=== PATIENT | female | born 1995 | race Two or more races ===

== ENCOUNTER 2024-10-02 10:33 | Emergency (ER) | payer MEDICAID, SELFPAY ==
[2024-10-02 10:53] VITALS: BP 127/81; PULSE 68; RESP 18; TEMP 36.7; O2SAT 96; BMI 36.1
--- NOTE | 2024-10-02 10:56 | XR_ITS ---
Examination: CT brain head without contrast. 2-D sagittal coronal reconstructions Date and time of exam:October 02, 2024 1147 hours INDICATIONS: Onset dizziness beginning this morning CTDI: vol (mGy):48.8 DLP: (mGycm):883 Technique: Multiple CT axial sections of the brain have been obtained, 5 mm slice thickness. Contrast has not been administered. 2-D sagittal, coronal reconstructions have been obtained Low dose protocols were performed. One or more of the following dose reduction techniques were used; automated exposure control, adjustment of the mA and/or KV according to patient size, use of iterative reconstruction technique. Findings: No significant ventricular enlargement. Intra-axial or extra-axial hemorrhage density is not seen. No mass effect or midline shift Basal cisterns are not remarkable. Fourth ventricle is midline. Cranial vault intact. Impression: Negative for acute hemorrhage, mass effect or midline shift Advise clinical correlation follow-up accordingly
--- NOTE | 2024-10-02 10:57 | EKG_ITS ---
[facility] Test Date: 2024-10-02 Pat Name: ALTAGRACIA CRAWFORD Department: Room: - Gender: Female Operator Specialist Communications: : 1995 Requested By: Biju Leyva (ROQUE) Order Number: [id number] Reading MD: Biju Leyva (EXTRACTIVE METALLURGIST) Measurements Intervals [place] Rate: 67 P: 43 SD: 159 QRS: 30 QRSD: 90 T: 40 QT: 362 QTc: 382 Interpretive Statements SINUS RHYTHM No previous ECG available for comparison /store/S0/[id number]/ecg/[id number].pdf
--- NOTE | 2024-10-02 10:57 | XR_ITS ---
Examination: PA lateral chest 2 views TECHNIQUE: Upright PA lateral chest 2 views Exam date and time: October 02, 1999 2524 hours INDICATIONS: Dizziness nausea vomiting beginning this morning FINDINGS: Normal heart size. No aspiration pneumonia Osseous structures are intact IMPRESSION: No aspiration pneumonia
--- NOTE | 2024-10-02 10:57 | PD.EDRME ---
Rapid Medical Screening Exam RME Arrival date/time: 10/02/24 10:33 29-year-old female presents emergency department complains of dizziness Chief Complaint: Dizziness Vital signs: Vital Signs Temperature 98.0 F 10/02/24 10:53 Pulse Rate 68 10/02/24 10:53 Respiratory Rate 18 10/02/24 10:53 Blood Pressure 127/81 10/02/24 10:53 Pulse Oximetry (%) 96 10/02/24 10:53 Oxygen Delivery Method Room Air 10/02/24 10:53
[2024-10-02] MEDS: MECLIZINE HCL 25 MG TABLET 50 MG PO (11:15)
[2024-10-02 11:51] LABS: Basophils % (Auto) 1 % (0-2.5); Eosinophils # (Auto) 0.1 Thou/mm3 (0.0-0.5); Eosinophils % (Auto) 2 % (0-10); Hemoglobin 13.5 g/dL (12.0-16.0); Immature Granulocytes % (Auto) 0 % (0-0); Immature Granulocytes Auto 0.02 Thou/mm3 (0.00-0.00); Lymphocytes # (Auto) 1.9 Thou/mm3 (1.0-4.8); Lymphocytes % (Auto) 29 % (10-50); Mean Corpuscular HGB Conc 32.9 g/dl (31.0-37.0); Mean Corpuscular Hemoglobin 28.3 pg (25.0-35.0); Mean Corpuscular Volume 86 fL (80-100); Monocytes # (Auto) 0.3 Thou/mm3 (0.0-0.8); Monocytes % (Auto) 5 % (0-12); Neutrophils % (Auto) 63 % (37-80); Nucleated Red Blood Cell % 0 /100 WBC (0); Platelet Count 240 Thou/mm3 (140-440); RDW Standard Deviation 41.5 fL (36.4-46.3); Red Blood Count 4.77 Miln/mm3 (4.00-5.20); White Blood Count 6.4 Thou/mm3 (3.6-11.0)
[2024-10-02 11:53] LABS: HCG,Qualitative Serum Negative
[2024-10-02 12:06] LABS: Alanine Aminotransferase 29 U/L (10-49); Albumin, Serum 4.5 gm/dL (3.5-5.0); Albumin/Globulin Ratio 1.6 (1.2-2.2); Alkaline Phosphatase 106 U/L (46-116); Anion Gap 10 (7-16); Aspartate Amino Transferase 19 U/L (0-34); BUN/Creatinine Ratio 14 Ratio (12-20); Bilirubin,Total 0.5 mg/dL (0.3-1.2); Blood Urea Nitrogen 7 mg/dL (9-23); Calcium 9.3 mg/dL (8.3-10.6); Calcium (Corrected) 9.3 mg/dL (8.5-10.1); Carbon Dioxide 23.5 mMol/L (20.0-31.0); Chloride 105 mMol/L (98-107); Creatinine (Component) 0.5 mg/dL (0.6-1.3); Estimated Creatinine Clearance 158.1 mL/min (>60); Free T4 (Free Thyroxine) 1.21 ng/dL (0.89-1.76); Globulin 2.9 gm/dL (2.3-3.5); Glucose 109 mg/dL (74-106); Osmolality,Calculated 274 (275-295); Potassium 3.8 mMol/L (3.4-5.1); Sodium 138 mMol/L (136-145); Thyroid Stimulating Hormone 0.63 uIU/mL (0.55-4.78); Total Protein 7.4 gm/dL (5.7-8.2); Troponin I < 0.002 ng/mL (0.0-0.045); eGFR > 60 See Note
[2024-10-02 14:20] VITALS: BP 129/82; PULSE 67; RESP 17; TEMP 37.1; O2SAT 99
--- NOTE | 2024-10-02 14:35 | EDNOTE_ITS ---
ED General RME/HPI General Chief complaint: Dizziness Stated complaint: Dizzy since 0100, Vomit X 1, nausea Time Seen by Provider: 10/02/24 14:29 Arrival date/time: 10/02/24 10:33 CC: Dizziness, HPI onset abruptly at 1 AM woke patient up. The patient said the room spinning she is not spinning no prior history of similar events, denies falling nausea or vomiting. Patient states there is been significant improvement since she was given medicine while in the waiting room. Patient was assessed at 1435. Patient denies any other symptoms. RME / HPI RME / HPI narrative: 10/02/24 10:33 29-year-old female presents emergency department complains of dizziness Related Data Home Medications ?Medication ?Instructions ?Recorded ?Confirmed prenat.vits,carol,[id number] 1 tab PO QDAY 11/02/20 06/22/24 Previous Rx's ?Medication ?Instructions ?Recorded meclizine 50 mg tablet 50 mg PO BID #14 tabs Allergies Allergy/AdvReac Type Severity Reaction Status Date / Time No Known Allergies Allergy Verified 10/02/24 10:37 Review of Systems Review of Systems Narrative Review of Systems: GEN: No fever, no chills, no weight loss EYES: No discharge, no visual changes, no pain HEENT: No ear pain, no congestion, no sore throat PULM: No shortness of breath, no cough, no congestion CV: No chest pain, no dyspnea on exertion, no palpitations GI: No nausea, no vomiting, no diarrhea, no pain, no constipation : No frequency, no urgency, no dysuria MUSC/SKEL: No joint pain, no back pain SKIN: No rash PSYCH: No hallucinations, no depression HEME/LYMPH: No easy bleeding or bruising tendencies NEURO: No weakness, no headache Past Medical History Past Medical History NEUROLOGIC: Negative Neurological Disorders CARDIAC: Negative Cardiac Disorders or Congestive Heart Failure RESPIRATORY: Negative Chronic Obstructive Pulmonary Disease (COPD) or Asthma GASTROINTESTINAL: Negative Gastrointestinal Disorders GENITOURINARY: Negative Genitourinary Disorders or Renal Disease REPRODUCTIVE: Positive Previous Pregnancies; Negative Pelvic Inflammatory Disease MUSCULOSKELETAL: Positive Musculoskeletal Disorders ENDOCRINE: Positive Endocrine Disorders; Negative Diabetes Mellitus Type 1 or Diabetes Mellitus Type 2 HEMATOLOGIC: Negative Blood Disorders OTHER HISTORY: Negative Hospitalization, Autoimmune Disease, Shingles, Falls, Blood Transfusions, Anesthesia Reactions, MRSA, Chicken Pox, Clostridium Difficile or Cancer Family History FAMILY HISTORY: Negative Family Psychiatric Problems, Family Respiratory Disorders, Family Cardiac Disorders, Family Gastrointestinal Problems, Family Cancer, Family Surgery or Family Anesthesia Reaction Surgical History SURGICAL: Negative Cardiac Surgery, Endocrine Surgery, Thyroidectomy, Ear Surgery, Abdominal Surgery, Nephrectomy, Joint Replacement, Neurologic Surgery or Section Social History SMOKING STATUS: Never smoker SECOND HAND EXPOSURE: No ED Exam Narrative Physical exam: [General: Obese not in cot no acute distress Head normocephalic HEENT: Eyes pupils are PERRLA EOMs are intact no vertical or horizontal nystagmus mouth pink moist membranes uvula midline swallow symmetrical, all other subsystems of HEENT are within acceptable limits Neck is supple nontender Chest equal chest rise nontender to palpation Respiratory: Clear to auscultation no wheezes crackles or rubs CV: Rate rhythm is regular no murmurs rubs or clicks Abdomen is distended secondary to body habitus soft nontender no masses positive bowel sounds all 4 quadrants Back: No CVA tenderness no spinous process tenderness from cervical spine thoracic and lumbar spine Skin: Intact no petechiae rash induration ulceration or crepitus Extremities: Moving all extremity against resistance cap refill less than 2 seconds neurosensory intact Neuro: Awake alert oriented x3 Glascow coma 15 no focal deficits] Course Quality Measures none Orders Category Date Time Status EKG (ED ONLY) *Do not use* NOW Care 10/02/24 10:[address] head/brain wo con Stat Exams 10/02/24 10:56 Completed EKG (ED Only) Stat Exams 10/02/24 10:57 Draft XR chest 2V Stat Exams 10/02/24 10:57 Completed CBC Stat Lab 10/02/24 11:23 Completed Comprehensive Metabolic Panel Stat Lab 10/02/24 11:23 Completed Free T4 (Free Thyroxine) Stat Lab 10/02/24 11:23 Completed HCG,Qualitative Serum Stat Lab 10/02/24 11:23 Completed TSH [Thyroid Stimulating Hormone] Stat Lab 10/02/24 11:23 Completed Troponin I Stat Lab 10/02/24 11:23 Completed Meclizine HCl [Antivert] Med 10/02/24 10:56 Discontinued 50 mg PO X1 ONE Vital Signs Vital signs: Vital Signs Temperature 98.0 F 10/02/24 10:53 Pulse Rate 68 10/02/24 10:53 Respiratory Rate 18 10/02/24 10:53 Blood Pressure 127/81 10/02/24 10:53 Pulse Oximetry (%) 96 10/02/24 10:53 Oxygen Delivery Method Room Air 10/02/24 10:53 [facility] Patient data External records reviewed:: [facility] previous records Clinical information provided by:: patient Social determinants that could affect healthcare access:: none Patient has the following chronic illnesses:: None How is presenting disease/condition affected by chronic disease/condition?: u neffected by Evaluation data The following diagnostics were reviewed and interpreted by me:: lab results and radiology exam(s) Lab and/or radiology exams considered but not ordered:: CT head is negative for any acute finding as interpreted by me read by radiology CBC shows no acute leukocytosis anemia thrombocytopenia CMP shows no acute electrolyte imbalances BUN is 7 creatinine 0.5 no transaminitis or T. bili elevation glucose is mildly elevated 109 EKG performed at 11:00 sharp shows a ventricular rate of 6 7 WI interval 159 QRS of 9 0 QTc of 377 this is normal sinus rhythm no left axis deviation. This is a normal sinus rhythm CT of the head is interpreted by me read by radiology as negative for any acute finding. Interpretation Summary: Benign positional vertigo Medications Medications considered but not ordered:: None Medication administrations:: Medication Administration History Discontinued Medications Meclizine HCl (Meclizine Hcl 25 Mg Tablet) 50 mg PO X1 ONE Stop: 10/02/24 10:57 Last Admin: 10/02/24 11:15 Dose: 50 mg Documented By: OA None Consultations Consultation(s) initiated? (list below): No Diagnosis Differential Diagnosis ED Complaint MDM: Benign positional vertigo, M?ni?re's, intercerebral mass Most likely diagnosis given after review of the tests above:: Benign positional vertigo Admission Indicated Admission indicated?: not indicated Explain why admission is indicated or not indicated:: Stable for discharge Admission Request Was there a request for admission?: No Disposition Plan Disposition Plan: Discharge Discharge Attestation Discharge Attestation: The patient and all family members were given an opportunity to ask questions and understood the discharge instructions. Discharge instructions specifically effects, indications for sooner follow up or return to the emergency department, and the expected course of current diagnosis. Patient condition: Stable Medical Decision Making Differential Diagnosis Differential Diagnosis: Benign positional vertigo, M?ni?re's, intercerebral mass Lab Data 10/02/24 11:23 10/02/24 11:23 Labs: Lab Results 10/02/24 Range/Units 11:23 WBC 6.4 (3.6-11.0) Thou/mm3 RBC 4.77 (4.00-5.20) Miln/mm3 Hgb 13.5 (12.0-16.0) g/dL Hct 41.0 (36.0-46.0) % MCV 86 (80-100) fL MCH 28.3 (25.0-35.0) pg MCHC 32.9 (31.0-37.0) g/dl RDW Std Deviation 41.5 (36.4-46.3) fL Plt Count 240 (140-440) Thou/mm3 Neut % (Auto) 63 (37-80) % Lymph % (Auto) 29 (10-50) % Owen % (Auto) 5 (0-12) % Eos % (Auto) 2 (0-10) % Baso % (Auto) 1 (0-2.5) % Neut # (Auto) 4.0 (1.8-7.7) Thou/mm3 Lymph # (Auto) 1.9 (1.0-4.8) Thou/mm3 Owen # (Auto) 0.3 (0.0-0.8) Thou/mm3 Eos # (Auto) 0.1 (0.0-0.5) Thou/mm3 Baso # (Auto) 0.0 (0.0-0.2) Thou/mm3 Immature Gran # (Auto) 0.02 H (0.00-0.00) Thou/mm3 Absolute Nucleated RBC 0.00 (0.00-0.00) Thou/mm3 Immature Gran % 0 (0-0) % Nucleated RBC % 0 (0) /100 WBC Sodium 138 (136-145) mMol/L Potassium 3.8 (3.4-5.1) mMol/L Chloride 105 (98-107) mMol/L Carbon Dioxide 23.5 (20.0-31.0) mMol/L Anion Gap 10 (7-16) BUN 7 L (9-23) mg/dL Creatinine 0.5 L (0.6-1.3) mg/dL Estim Creat Clear Calc 158.1 (>60) mL/min eGFR > 60 (60 - ) See Note BUN/Creatinine Ratio 14 (12-20) Ratio Glucose 109 H (74-106) mg/dL Calculated Osmolality 274 L (275-295) Calcium 9.3 (8.3-10.6) mg/dL Corrected Calcium 9.3 (8.5-10.1) mg/dL Total Bilirubin 0.5 (0.3-1.2) mg/dL AST 19 (0-34) U/L ALT 29 (10-49) U/L Alkaline Phosphatase 106 (46-116) U/L Troponin I < 0.002 (0.0-0.045) ng/mL Total Protein 7.4 (5.7-8.2) gm/dL Albumin 4.5 (3.5-5.0) gm/dL Globulin 2.9 (2.3-3.5) gm/dL Albumin/Globulin Ratio 1.6 (1.2-2.2) TSH 0.63 (0.55-4.78) uIU/mL Free T4 1.21 (0.89-1.76) ng/dL HCG, Qual Negative Discharge Plan Plan Patient Disposition: HOME (Self Care) Patient condition on transfer: Stable Prescriptions/Referrals Prescriptions/Med Rec: New meclizine 50 mg tablet 50 mg PO BID Qty: 14 0RF No Action Vitamin Tablet 1 tab PO QDAY Referrals: Jewel Donohue MD [Primary Care Provider] - In 1 week Problem List Clinical Impression: Benign positional vertigo Patient/Caregiver Discharge Instructions Education Materials: Vertigo Medicine Tx, ED Vertigo, Unspecified Print Language: [place] Zealander Stand Alone Forms: Tangela Award Info., Patient Portal Info Letter, Work/School Release PA/SUB PLANT MANAGER Supervising Physician PA/SUB PLANT MANAGER Supervising Physician: Dustin Cheema ENP
== END 2024-10-02 14:46 | disposition home or self-care (01) ==
PROVIDERS: Nurse Practitioner Primary Care; Emergency Provider Emergency Medicine; PCP Family Medicine
DX: H81.10 Benign paroxysmal vertigo, unspecified ear (principal)
CPT/HCPCS: 36415; 70450; 71046; 80053; 84439; 84443; 84484; 84703; 85025; 93005; 99284; A9270

== ENCOUNTER 2025-05-05 22:25 | Observation (INO) | payer MEDICAID, SELFPAY ==
[2025-05-05 22:56] VITALS: BP 129/86; PULSE 81; RESP 18; TEMP 36.9; O2SAT 96
[2025-05-05 23:37] LABS: Basophils # (Auto) 0.1 Thou/mm3 (0.0-0.2); Basophils % (Auto) 0 % (0-2.5); Eosinophils # (Auto) 0.1 Thou/mm3 (0.0-0.5); Eosinophils % (Auto) 0 % (0-10); Hematocrit 40.3 % (36.0-46.0); Hemoglobin 13.7 g/dL (12.0-16.0); Immature Granulocytes Auto 0.05 Thou/mm3 (0.00-0.00); Lymphocytes # (Auto) 1.9 Thou/mm3 (1.0-4.8); Lymphocytes % (Auto) 15 % (10-50); Mean Corpuscular HGB Conc 34.0 g/dl (31.0-37.0); Mean Corpuscular Hemoglobin 30.0 pg (25.0-35.0); Mean Corpuscular Volume 88 fL (80-100); Monocytes # (Auto) 0.5 Thou/mm3 (0.0-0.8); Monocytes % (Auto) 4 % (0-12); Neutrophils # (Auto) 9.7 Thou/mm3 (1.8-7.7); Neutrophils % (Auto) 80 % (37-80); Nucleated Red Blood Cell # 0.00 Thou/mm3 (0.00-0.00); Nucleated Red Blood Cell % 0 /100 WBC (0); Platelet Count 249 Thou/mm3 (140-440); RDW Standard Deviation 38.6 fL (36.4-46.3); Red Blood Count 4.57 Miln/mm3 (4.00-5.20); White Blood Count 12.2 Thou/mm3 (3.6-11.0)
[2025-05-05 23:38] LABS: Collection Type, Urine Clean Catch
[2025-05-05 23:52] LABS: Alanine Aminotransferase 21 U/L (10-49); Albumin, Serum 4.6 gm/dL (3.5-5.0); Albumin/Globulin Ratio 1.8 (1.2-2.2); Alkaline Phosphatase 91 U/L (46-116); Amylase 205 U/L (30-118); Anion Gap 9 (7-16); Aspartate Amino Transferase 19 U/L (0-34); BUN/Creatinine Ratio 8 Ratio (12-20); Bilirubin,Total 0.5 mg/dL (0.3-1.2); Blood Urea Nitrogen < 5 mg/dL (9-23); Calcium 9.5 mg/dL (8.3-10.6); Calcium (Corrected) 9.5 mg/dL (8.5-10.1); Carbon Dioxide 26.4 mMol/L (20.0-31.0); Chloride 104 mMol/L (98-107); Creatinine (Component) 0.6 mg/dL (0.6-1.3); Globulin 2.5 gm/dL (2.3-3.5); Glucose 136 mg/dL (74-106); Osmolality,Calculated 276 (275-295); Potassium 3.7 mMol/L (3.4-5.1); Sodium 139 mMol/L (136-145); Total Protein 7.1 gm/dL (5.7-8.2); eGFR > 60 See Note
[2025-05-05 23:57] LABS: Bacteria,Urine Rare; Bilirubin,Urine Negative (Negative); Blood,Urine Negative (Negative); Clarity,Urine Turbid (Clear/Hazy); Color,Urine Yellow (Lt Yel-Yel); Glucose, Urine Negative (Negative); Ketones,Urine Negative (Negative); Leukocyte Esterase,Urine Positive (Negative); Nitrite,Urine Negative (Negative); PH,Urine 6.0 (5.0-7.0); Protein,Urine Trace (Neg - Trace); RBC,Urine 4 /hpf (0-3); Specific Gravity,Urine 1.023 (1.001-1.035); Squamous Epithelial Cell,Urine 15 /hpf (0-5); Urobilinogen,Urine Negative mg/dL (0.0-1.0); WBC,Urine 14 /hpf (0-5)
[2025-05-06] VITALS (14 sets, daily range): BP systolic 98–136; BP diastolic 65–87; PULSE 65–87; RESP 12–20; TEMP 36.2–37.2; O2SAT 92–100; BMI 30.3; BMI 30.6
--- NOTE | 2025-05-06 | XR_ITS ---
Examination: Abdomen sonogram, Limited Date and time of exam: May 06, 2025 0002 hrs. Indications: Epigastric pain and vomiting beginning 4:00 AM yesterday Technique: Real-time dockery scale transabdominal sonographic images of the upper abdomen obtained. Findings: Multiple gallstones Gallbladder wall 0.41 cm Common bile duct 0.2 cm Pancreatic head 1.5 cm Liver 16.9 cm no liver lesions Normal hepatopedal portal venous flow Patent IVC Impression: Cholelithiasis Thickening of the gallbladder wall, clinical correlation advised, consider HIDA scan or MRCP follow-up to exclude cholecystitis
[2025-05-06 00:06] LABS: HCG Qualitative,Urine Negative
--- NOTE | 2025-05-06 00:47 | PRELIM_ITS ---
Gallbladder ultrasound with limited Doppler. May 06, 2025 at 0002 hours Clinical history: Epigastric abdominal pain with vomiting starting at 4 am yesterday. No prior study is available for comparison. Findings: The liver measures 16.9 cm in length and demonstrates increase in echogenicity. No intrahepatic biliary ductal dilatation is demonstrated. The main portal vein is patent and demonstrates hepatopetal flow. Multiple calculi are noted within the gallbladder with gallbladder wall thickening, measuring 4.1 mm. No evidence of pericholecystic fluid. The common duct is normal in caliber at 2 mm. The pancreas is unremarkable to the extent visualized. The abdominal aorta and inferior vena cava are unremarkable to the extent visualized. Impression: Cholelithiasis with gallbladder wall thickening, suspicious for acute cholecystitis. Fatty infiltration of the liver. Report Electronically Signed By: Eber Georges 05/06/2025 12:46:03 AM [EST]
--- NOTE | 2025-05-06 00:52 | XR_ITS ---
Examination: CT abdomen and pelvis without contrast. Coronal 3-D reconstructions. Sagittal 2-D reconstructions. Date and time of exam:May 06, 2025, 0323 hrs. Indications: Abdominal pain nausea vomiting today, clinical diagnosis pancreatitis CTDI: vol (mGy): 9.71 DLP: (mGycm): 571 Technique: Axial images of the abdomen have been obtained, 3 mm slice thickness Intravenous contrast material has not been administered. Low dose protocols were performed. One or more of the following dose reduction techniques were used; automated exposure control, adjustment of the mA and/or KV according to patient size, use of iterative reconstruction technique. Findings: No focal liver or splenic lesions Suspicious for gallbladder wall thickening and edema No pancreatic or adrenal mass. No renal or ureteral calculi, no hydronephrosis Aorta normal size Small fat-containing umbilical hernia Normal appendix No diverticulitis Urinary bladder intact Impression: Suspicious for acute cholecystitis Please see the gallbladder sonogram report 0002 hrs. today, consider MRCP follow-up
--- NOTE | 2025-05-06 04:04 | PRELIM_ITS ---
CT scan of the abdomen and pelvis without intravenous contrast (axial sections with sagittal and coronal reformats) May 06, 2025 0323 hours Clinical History: pancreatitis Reference is made to the prior [facility] report dated May 06, 2025. Findings: The lung bases are clear. Fatty infiltration of the liver is noted. Gallbladder is distended with cluster of isodense intraluminal calculi. The gallbladder wall is thickened with subtle pericholecystic fat stranding. The pancreas, spleen, kidneys and adrenals are unremarkable on this noncontrast study. No evidence of bowel obstruction. The appendix is within normal limits. There is no mesenteric or retroperitoneal adenopathy. A small fat-containing umbilical hernia is present. The urinary bladder is unremarkable. There is no free fluid or free air. The uterus is retroverted with an intrauterine contraceptive device. The osseous structures are unremarkable. Impression: No evidence of pancreatitis. Findings consistent with acute cholecystitis. Other findings as described above. Report Electronically Signed By: Prisca Epstein 05/06/2025 4:03:50 AM [EST]
--- NOTE | 2025-05-06 05:08 | PD.EDABDPN ---
ED Abdominal Pain RME/HPI General Chief Complaint: Abdominal Pain Stated complaint: ABD PAIN Time seen by provider: 05/05/25 22:29 Arrival date/time: 05/05/25 22:25 This is a case of 29-year-old female with no medical history came in in the emergency room due to right upper abdominal pain sharp in character radiating to the flank for 3 days associated with nausea vomiting worsening of the symptoms this patient decided to sought consult here in the emergency room Limitations: no limitations Related Data Home Medications ?Medication ?Instructions ?Recorded ?Confirmed prenat.vits,carol,[id number] 1 tab PO QDAY 11/02/20 06/22/24 Previous Rx's ?Medication ?Instructions ?Recorded meclizine 50 mg tablet 50 mg PO BID #14 tabs 10/02/24 Allergies Allergy/AdvReac Type Severity Reaction Status Date / Time No Known Allergies Allergy Verified 05/05/25 22:25 Review of Systems Review of Systems Systems Reviewed: All systems reviewed, normal except as documented Constitutional Constitutional: Reports system reviewed and no additional complaints, except as documented and Reports as per HPI ENT Ears, Nose, Mouth, and Throat: Denies dysphagia and Denies odynophagia Cardiovascular Cardiovascular: Reports system reviewed and no additional complaints, except as documented and Reports as per HPI Respiratory Respiratory: Reports system reviewed and no additional complaints, except as documented and Reports as per HPI Gastrointestinal Gastrointestinal: Reports system reviewed and no additional complaints, except as documented, Reports as per HPI, Reports abdominal pain, Denies belching, Denies bloating, Denies change in bowel habits, Denies change in stool character, Denies coffee ground emesis, Denies constipation, Denies cramping, Denies diarrhea, Denies dyspepsia, Denies dysphagia, Denies early satiety, Denies excessive flatus, Denies fecal incontinence, Denies heartburn, Denies hematemesis, Denies hematochezia, Denies loose stools, Denies melena, Reports nausea, Denies odynophagia, Denies tenesmus and Reports vomiting Genitourinary Genitourinary: Reports system reviewed and no additional complaints, except as documented and Reports as per HPI Musculoskeletal Musculoskeletal: Reports system reviewed and no additional complaints, except as documented Neurologic Neurologic: Reports system reviewed and no additional complaints, except as documented and Reports as per HPI Past Medical History Past Medical History NEUROLOGIC: Negative Neurological Disorders CARDIAC: Negative Cardiac Disorders or Congestive Heart Failure RESPIRATORY: Negative Chronic Obstructive Pulmonary Disease (COPD) or Asthma GASTROINTESTINAL: Negative Gastrointestinal Disorders GENITOURINARY: Negative Genitourinary Disorders or Renal Disease REPRODUCTIVE: Positive Previous Pregnancies; Negative Pelvic Inflammatory Disease MUSCULOSKELETAL: Positive Musculoskeletal Disorders ENDOCRINE: Positive Endocrine Disorders; Negative Diabetes Mellitus Type 1 or Diabetes Mellitus Type 2 HEMATOLOGIC: Negative Blood Disorders OTHER HISTORY: Negative Hospitalization, Autoimmune Disease, Shingles, Falls, Blood Transfusions, Anesthesia Reactions, MRSA, Chicken Pox, Clostridium Difficile or Cancer Family History FAMILY HISTORY: Negative Family Psychiatric Problems, Family Respiratory Disorders, Family Cardiac Disorders, Family Gastrointestinal Problems, Family Cancer, Family Surgery or Family Anesthesia Reaction Surgical History SURGICAL: Negative Cardiac Surgery, Endocrine Surgery, Thyroidectomy, Ear Surgery, Abdominal Surgery, Nephrectomy, Joint Replacement, Neurologic Surgery or Section Social History SMOKING STATUS: Never smoker SECOND HAND EXPOSURE: No ED Exam General Limitations: Present no limitations General appearance: Present alert, in no apparent distress and other (Patient is awake alert oriented not in distress nontoxic looking well-hydrated well-nourished) Head Head exam: Present atraumatic, normocephalic and normal inspection Eye Eye exam: Present normal appearance, PERRL and EOMI ENT ENT exam: Present normal exam, normal oropharynx and mucous membranes moist Neck Neck exam: Present normal inspection, full ROM and trachea midline; Absent tenderness, meningismus, lymphadenopathy or thyromegaly Chest Chest inspection: Present normal inspection and symmetric chest wall rise; Absent tenderness Respiratory Respiratory exam: Present normal lung sounds bilaterally; Absent respiratory distress, wheezes, stridor, accessory muscle use or prolonged expiratory phase Cardiovascular Cardiovascular exam: Present regular rate, normal rhythm and normal heart sounds; Absent bradycardia, tachycardia, irregular rhythm, systolic murmur or diastolic murmur Abdominal Exam Abdominal exam: Present soft, tenderness (Mild tenderness in the right upper quadrant and right flank positive Marino sign on negative psoas negative obturator negative Rovsing's negative McBurney's negative psoas negative CVA tenderness), normal bowel sounds and Marino's sign; Absent distention, guarding, rebound, rigidity, diminished bowel sounds, hyperactive bowel sounds, hypoactive bowel sounds, organomegaly, psoas sign, obturator sign, Rovsing's sign or hernia Extremities Exam Extremities exam: Present normal inspection and full ROM Back Exam Back exam: Present normal inspection and full ROM Neurological Exam Neurological exam: Present alert, oriented X3, CN II-XII intact, normal gait and reflexes normal; Absent motor sensory deficit Psychiatric Psychiatric exam: Present normal affect and normal mood Skin Skin exam: Present warm, dry, intact and normal color Course Quality Measures none Orders Category Date Time Status COVID-19 Screening Questionnaire NOW Care 05/06/25 05:06 Active Decision to Admit X1 Care 05/06/25 05:[address] abdomen pelvis wo con Stat Exams 05/06/25 00:52 Taken US gall bladder Stat Exams 05/06/25 00:00 Taken Amylase Stat Lab 05/05/25 23:15 Completed CBC Stat Lab 05/05/25 23:15 Completed Comprehensive Metabolic Panel Stat Lab 05/05/25 23:15 Completed HCG Qualitative,Urine Stat Lab 05/05/25 23:31 Completed Urinalysis Stat Lab 05/05/25 23:31 Completed Morphine* Inj Med 05/06/25 05:03 Discontinued 4 mg IM X1 ONE Ondansetron Odt [Zofran Odt] Med 05/06/25 05:03 Discontinued 4 mg PO X1 ONE cefTRIAXone [Rocephin] 1,000 mg Med 05/06/25 05:06 Discontinued Lidocaine 1% 20 ml [Xylocaine 1% 20 ML] 2.1 ml IM X1 Vital Signs Vital signs: Vital Signs Temperature 98.5 F 05/05/25 22:56 Pulse Rate 81 05/05/25 22:56 Respiratory Rate 18 05/05/25 22:56 Blood Pressure 129/86 H 05/05/25 22:56 Pulse Oximetry (%) 96 05/05/25 22:56 Oxygen Delivery Method Room Air 05/05/25 22:56 Oxygen saturation is 96% in room air normal Abdominal Pain MDM MDM Narrative MDM Narrative:: This is a case of 29-year-old female with no medical history came in in the emergency room due to right upper abdominal pain sharp in character radiating to the flank for 3 days associated with nausea vomiting worsening of the symptoms this patient decided to sought consult here in the emergency room physical examination vital signs stable BP stable nontachycardic nontachypneic afebrile and nonhypoxic lungs sound is clear no crackles no rales no retraction no stridor heart normal rate regular rhythm no murmur abdominal exam noted to have mild to moderate tenderness in the right upper quadrant and right flank positive Marino's negative psoas negative straight or negative Rovsing's negative McBurney's negative CVA tenderness no guarding no rebound no rigidity excellent skin turgor the rest of the physical examination and neurological exams normal and unremarkable blood test showed leukocytosis at 11,000 no anemia kidney and liver function is normal no electrolyte imbalance ambulates elevated at 230 urinalysis showed WBC and RBC on the urine suggestive of urinary tract infection due to elevated amylase I ordered CT scan and it showed negative for pancreatitis but acute cholecystitis which was confirmed in the ultrasound based on my physical examination history and results of the imaging and blood test decision to admit the patient was made I spoke to Dr. Evans surgeon on-call agreed that the patient need to be admitted for acute cholecystitis he will see the patient today and possible surgery today or tomorrow I spoke to the hospitalist Dr. montes de oca agreed and accept patient admission spoke to the patient the treatment plan and admission and agreed Patient data External records reviewed:: [facility] previous records Clinical information provided by:: patient Social determinants that could affect healthcare access:: none Patient has the following chronic illnesses:: None How is presenting disease/condition affected by chronic disease/condition?: no chronic disease Evaluation data The following diagnostics were reviewed and interpreted by me:: lab results and radiology exam(s) Lab and/or radiology exams considered but not ordered:: Reviewed Interpretation Summary: Reviewed Medications / Prescriptions Medications or Prescriptions considered but not ordered:: Given Medication administrations:: Medication Administration History Discontinued Medications Ceftriaxone Sodium 1,000 mg/ (Lidocaine HCl 2.1 ml) 0 mg IM X1 ONE Stop: 05/06/25 05:07 Morphine Sulfate (Morphine Sulf Inj 4 Mg/Ml Vial) 4 mg IM X1 ONE Stop: 05/06/25 05:04 Ondansetron HCl (Ondansetron Odt 4 Mg Tabrap) 4 mg PO X1 ONE; Protocol Stop: 05/06/25 05:04 Given Consultations Consultation(s) initiated? (list below): Yes Consultation #1 (Physician, Specialty, Details): Dr Evans agreed patient need to be admitted for acute cholecystitis he will see the patient today and for surgery possible today or tomorrow Consultation #2 (Physician, Specialty, Details): dr montes de oca hospitalist on-call spoke regarding patient condition history and physical examination relayed the result of the blood test and imaging agreed that the patient need to be admitted for acute cholecystitis accept patient admission Diagnosis Differential diagnosis abdominal pain: abdominal pain, acute appendicitis, calculus of kidney, constipation, diverticulitis and other (Acute cholecystitis) Most likely diagnosis given after review of the tests above:: Acute cholecystitis Admission Indicated Admission indicated?: indicated Explain why admission is indicated or not indicated:: Acute cholecystitis Admission Request Was there a request for admission?: Yes Admission Attestation Admission request attestation: Discussed case with [] from Hospitalist service regarding admission. Discussed patients ED course, exam findings, labs, and radiology results. The Hospitalist [agrees,declines] to accept the patient for admission. Disposition Plan Disposition Plan: Admit Discharge Plan Plan Patient Disposition: HOME (Self Care) Patient condition on transfer: Stable Prescriptions/Referrals Prescriptions/Med Rec: No Action Vitamin Tablet 1 tab PO QDAY meclizine 50 mg tablet 50 mg PO BID Qty: 14 0RF Referrals: No Primary/Family,Physician [Primary Care Provider] - In 1 week Problem List Clinical Impression: Abdominal pain, Acute cholecystitis, Urinary tract infection Patient/Caregiver Discharge Instructions Education Materials: Abdominal Pain, Urinary Tract Infections in Women, ED Cholecystitis, Confirmed Print Language: Yakut Stand Alone Forms: Tangela Award Info., Patient Portal Info Letter PA/SECURITIES COUNSELOR Supervising Physician PA/SECURITIES COUNSELOR Supervising Physician: Dr. Ulrich
[2025-05-06] MEDS: cefTRIAXone/D5w 1gm IV premix 1 GM/50 ML BAG IV (05:29)
[2025-05-06] MEDS: KETOROLAC INJ 30 MG/ML VIAL IVP (05:33)
[2025-05-06] MEDS: ONDANSETRON INJ 2 MG/ML INJ 2 ML 4 MG IVP (05:34)
[2025-05-06] MEDS: RINGERS LACTATED 1000 ML 1,000 ML IV (05:34)
[2025-05-06] MEDS: MORPHINE SULF INJ 4 MG/ML VIAL IVP (05:36)
--- NOTE | 2025-05-06 06:20 | PD.RESHP ---
Documentation for date of: 05/06/25 [facility] History of Present Illness History of present illness: Patient is a 29-year-old female with past medical history of gestational diabetes presented to the ED patient 05/06/2015 chief complaint abdominal pain for 1 day. The patient reports experiencing epigastric abdominal pain, describing it as feeling like organs are twisting around each other. The pain is severe, rated 10 out of 10, worse with meals. Has improved with medication to 4-5/10. Abdominal pain improved with lying down. Patient reported having 1 bowel movement before coming to the ED. The pain is associated with nausea, vomiting, and malaise. The patient has had 3-4 episodes of vomiting in the past 24 hours, with the emesis being non-bloody and non-bilious. This is the first occurrence of these symptoms. The patient denies fever, chills, shortness of breath, chest pain, palpitations, dysuria, frequency or urgency.Denies changes in bowel habits, melena, or hematochezia. ED Course: -Initial vitals were BP 129/86, pulse 81, RR 18, temp 98.5, O2 sat 96% on room air. -Labs significant for leukocytosis WBC 12.2, amylase 205. UA positive for leukocyte esterase and 14 WBC. -Imaging included gallbladder ultrasound shows Cholelithias. Abdomen /pelvis CT shows shows findings consistent with acute cholecystitis. -In the ED, patient was given ceftriaxone 1gm x 1, ketorolac 30 mg IVP x 1, Ondansetron 4mg IVP x1 - ED consult Dr. Evans ( general surgery) , wants to admit for possible surgery tomorrow. -Patient was admitted for acute cholecystitis evaluation and management. Review of Systems Review of systems otherwise negative except what is mentioned above. Past Medical History: Gestational diabetes Family History: Unremarkable Surgical History: None Social History: Denies history of smoking, denies current alcohol use, denies recreational drug use. Has 6 children, vaginal delivery. Works as a medical doctor md/medical director Current Medications: (Source: ) Allergies: No known drug allergies Exam Vital Signs Temp Pulse Resp BP Pulse Ox O2 Del Method 98.4 F 78 18 118/75 98 Room Air 05/06/25 05:27 05/06/25 05:27 05/06/25 05:27 05/06/25 05:27 05/06/25 05:27 05/06/25 05:27 Narrative Exam General: Alert, no acute distress.Conversational and non-toxic appearing. Skin: Warm, dry, intact. No rash or ecchymoses. Head: Normocephalic, atraumatic. Eye: Normal conjunctiva, PERRL. Throat: Oral mucosa moist. No obvious lesions in oropharynx. Cardiovascular: Regular rate and rhythm, no murmur, +S1/S2. Respiratory: Lungs are clear to auscultation, respirations unlabored, no crackles, no wheezing. Gastrointestinal: Epigastric and RUQ tender to palpation, non-distended. (+) Marino sign. No guarding or rebound tenderness. Extremities: No edema, no cyanosis, no clubbing. Neuro: Alert and oriented x3.No focal deficits observed. Conversant, moving all extremities. No overt cerebellar signs/incoordination. Psychiatric: Cooperative, appropriate affect Results: Labs 05/05/25 23:15 05/05/25 23:15 Labs: Short CBC 05/05/25 Range/Units 23:15 WBC 12.2 H (3.6-11.0) Thou/mm3 Hgb 13.7 (12.0-16.0) g/dL Hct 40.3 (36.0-46.0) % Plt Count 249 (140-440) Thou/mm3 BMP 05/05/25 23:15 Sodium 139 Potassium 3.7 Chloride 104 Carbon Dioxide 26.4 BUN < 5 L Creatinine 0.6 Glucose 136 H Calcium 9.5 Liver Function 05/05/25 Range/Units 23:15 Total Bilirubin 0.5 (0.3-1.2) mg/dL AST 19 (0-34) U/L ALT 21 (10-49) U/L Alkaline Phosphatase 91 (46-116) U/L Albumin 4.6 (3.5-5.0) gm/dL Urine 05/05/25 Range/Units 23:31 Urine Color Yellow (Lt Yel-Yel) Urine Clarity Turbid A (Clear/Hazy) Urine pH 6.0 (5.0-7.0) Ur Specific Ferney 1.023 (1.001-1.035) Urine Protein Trace (Neg - Trace) Urine Glucose (UA) Negative (Negative) Quality Measures Quality Measures none Medications Home Medications and Allergies Home Medications ?Medication ?Instructions ?Recorded ?Confirmed ?Type prenat.vits,carol,[id number] 1 tab PO QDAY 11/02/20 05/06/25 History Allergies Allergy/AdvReac Type Severity Reaction Status Date / Time No Known Allergies Allergy Verified 05/05/25 22:25 Visit Medications Acetaminophen (Acetaminophen 325 Mg Tablet) 650 mg PO Q6H PRN PRN Reason: Fever >101.5 Stop: 06/05/25 05:53 Lactated Ringer's (Lactated Ringers) 1,000 mls @ 1,000 mls/hr IV .Q1H ONE Stop: 05/06/25 06:29 Last Admin: 05/06/25 05:34 Dose: 1,000 mls/hr Piperacillin/Tazobactam/Dextrose (Zosyn) 3.375 g in 50 mls @ 100 mls/hr IV Q6HR ALISE; Protocol Stop: 05/13/25 06:01 Ibuprofen (Ibuprofen Tab 600 Mg Tablet) 600 mg PO Q6H PRN PRN Reason: PAIN SCALE 1-3 (mild Stop: 06/05/25 05:53 Ondansetron HCl (Ondansetron Inj 2 Mg/Ml Inj 2 Ml) 4 mg IVP Q4H PRN; Protocol PRN Reason: NAUSEA OR VOMITING Stop: 06/05/25 05:53 Pantoprazole Sodium (Pantoprazole Inj 40 Mg Vial) 40 mg IVP QDAY [facility] Stop: 06/05/25 08:59 Discontinued Medications Ceftriaxone Sodium 1,000 mg/ (Lidocaine HCl 2.1 ml) 0 mg IM X1 ONE Stop: 05/06/25 05:07 Last Admin: 05/06/25 05:19 Dose: Not Given Hydromorphone HCl (Hydromorphone Inj 2 Mg/Ml Vial) 1 mg IVP X1 ONE Stop: 05/06/25 05:29 Last Admin: 05/06/25 05:35 Dose: Not Given Ceftriaxone Sodium/Dextrose (Rocephin/D5w 1gm Iv Premix) 1 gm in 50 mls @ 100 mls/hr IV X1 ONE Stop: 05/06/25 05:47 Last Admin: 05/06/25 05:29 Dose: 100 mls/hr Ketorolac Tromethamine (Ketorolac Inj 30 Mg/Ml Vial) 30 mg IVP X1 ONE Stop: 05/06/25 05:29 Last Admin: 05/06/25 05:33 Dose: 30 mg Morphine Sulfate (Morphine Sulf Inj 4 Mg/Ml Vial) 4 mg IM X1 ONE Stop: 05/06/25 05:04 Last Admin: 05/06/25 05:35 Dose: Not Given Morphine Sulfate (Morphine Sulf Inj 4 Mg/Ml Vial) 4 mg IVP X1 ONE Stop: 05/06/25 05:29 Last Admin: 05/06/25 05:36 Dose: 4 mg Ondansetron HCl (Ondansetron Odt 4 Mg Tabrap) 4 mg PO X1 ONE; Protocol Stop: 05/06/25 05:04 Last Admin: 05/06/25 05:24 Dose: Not Given Ondansetron HCl (Ondansetron Inj 2 Mg/Ml Inj 2 Ml) 4 mg IVP X1 ONE; Protocol Stop: 05/06/25 05:25 Last Admin: 05/06/25 05:34 Dose: 4 mg Assessment & Plan Plan Patient is a 29-year-old female with past medical history of gestational diabetes presented to the ED patient 05/06/2015 chief complaint of abdominal pain, nausea and vomiting for 1 day. Admitted for acute cholecystitis with evaluation management. #Intractable abdominal pain #Acute cholecystitis #Cholelithiasis Patient presented with acute onset abdominal pain, nausea, vomiting. Worsened postprandially. On physical examination right upper, epigastric pain with positive Marino sign, indicating possible cholecystitis. Patient is afebrile with a leukocytosis of 12.2. In ED patient received ceftriaxone, ketorolac, and Zofran, 1 L LR. Abdomen /pelvis CT shows:gallbladder is distended with cluster of isodense intraluminal calculi. Gallbladder wall is thickened with subtle pericholecystic fat stranding.Findings consistent with acute cholecystitis. Gallbladder ultrasound shows: Cholelithiasis multiple gallstones,gallbladder wall 0.41 cm,Common bile duct 0.2 cm - NPO -Continue IV hydration maintenance NS at 80/hr -Zofran for nausea/vomiting -General Surgery consulted, recommendation appreciated -Pain control with Tylenol and Dilaudid - PT (PT with INR) and PPT ordered - Consider MRCP based on IR recommendation #Asymptomatic pyuria Patient denies dysuria, frequency or urgency. However UA was positive for leukocyte esterase 14 WBC, 4 RBC. Urine hCG negative -Continue to monitor for UTI symptoms #Hx gestational diabetes -Not on any medication Hospital management: Lines: peripheral IV Diet: NPO DVT prophylaxis: SCDs Disposition: med surg for acute cholecystitis evaluation and management CODE STATUS: Full code Patient seen and assessed under supervision of attending physician Dr.Alhalaibeh Bouchra Pinedo MD PGY-1, Internal Medicine Please note: this document was transcribed using voice recognition technology; minor inaccuracies may be present. Attending Provider Attestation/Addendum After examination of the patient and review of the clinical data I feel that this patient needs admission to the hospital for further treatment/evaluation. Plan of care discussed with patient and is in agreement. I Ladonna Cifuentes MD, attest that I was physically present for adorno portions of evaluation, and examined patient, labs and imagings and plan of care were discussed with IM residents team, and I agree with the findings and plans documented above.
[2025-05-06] MEDS: SODIUM CHLORIDE 0.9% 1000 ML 1,000 ML 80 ML IV ×2 (07:48→22:58)
--- NOTE | 2025-05-06 08:16 | ESPR_ITS ---
<Statement entered by Faith Langley MD - 05/09/25 17:40> I reviewed above note and agree with findings and plans. I have also personally examined the patient with medicine team and went over assessment and plan with medical team including paralegal internship and resident physician. <Statement entered by Lilian Fritz MD - 05/06/25 20:25> Patient examined at bedside. Vitals are stable. Labs show mild leukocytosis of 12, LFTS unremarkable, bilirubin normal. CT scan and abdominal ultrasound revealed gallstones with gallbladder wall thickening and edema. She will undergo lap yue by Dr. Evans today. Continue pain meds and advance diet. Plan to discharge next 24 hrs. The patient's management plan was discussed with my attending physician Dr. Langley. Lilian Fritz, PGY-2 Documentation for date of: 05/06/25 Subjective Subjective Interval history: 05/06/2025: Patient seen and evaluated at bedside prior to going to surgery, she is comfortable, abdominal pain is minimal given recent pain meds given. plan for surgery at [address] evans. Exam Vital Signs Temp Pulse Resp BP Pulse Ox O2 Del Method 98.3 F 68 19 102/65 98 Room Air 05/06/25 07:19 05/06/25 07:19 05/06/25 07:19 05/06/25 07:19 05/06/25 07:19 05/06/25 07:19 Narrative Exam General: Alert, no acute distress.Conversational and non-toxic appearing. Skin: Warm, dry, intact. No rash or ecchymoses. Head: Normocephalic, atraumatic. Eye: Normal conjunctiva, PERRL. Throat: Oral mucosa moist. No obvious lesions in oropharynx. Cardiovascular: Regular rate and rhythm, no murmur, +S1/S2. Respiratory: Lungs are clear to auscultation, respirations unlabored, no crackles, no wheezing. Gastrointestinal: soft nontender non distended (given pain meds before exam), previously had ruq tenderness . No guarding or rebound tenderness. Extremities: No edema, no cyanosis, no clubbing. Neuro: Alert and oriented x3.No focal deficits observed. Conversant, moving all extremities. No overt cerebellar signs/incoordination. Psychiatric: Cooperative, appropriate affect Objective Labs 05/05/25 23:15 05/05/25 23:15 Labs: Laboratory Results - last 24 hr 05/05/25 05/05/25 23:15 23:31 WBC 12.2 H RBC 4.57 Hgb 13.7 Hct 40.3 MCV 88 MCH 30.0 MCHC 34.0 RDW Std Deviation 38.6 Plt Count 249 Neut % (Auto) 80 Lymph % (Auto) 15 Cottle % (Auto) 4 Eos % (Auto) 0 Baso % (Auto) 0 Neut # (Auto) 9.7 H Lymph # (Auto) 1.9 Cottle # (Auto) 0.5 Eos # (Auto) 0.1 Baso # (Auto) 0.1 Immature Gran # (Auto) 0.05 H Absolute Nucleated RBC 0.00 Immature Gran % 0 Nucleated RBC % 0 Sodium 139 Potassium 3.7 Chloride 104 Carbon Dioxide 26.4 Anion Gap 9 BUN < 5 L Creatinine 0.6 Estim Creat Clear Calc Not Performed. eGFR > 60 BUN/Creatinine Ratio 8 L Glucose 136 H Calculated Osmolality 276 Calcium 9.5 Corrected Calcium 9.5 Total Bilirubin 0.5 AST 19 ALT 21 Alkaline Phosphatase 91 Total Protein 7.1 Albumin 4.6 Globulin 2.5 Albumin/Globulin Ratio 1.8 Amylase 205 H Ur Collection Type Clean Catch Urine Color Yellow Urine Clarity Turbid A Urine pH 6.0 Ur Specific Chester 1.023 Urine Protein Trace Urine Glucose (UA) Negative Urine Ketones Negative Urine Blood Negative Urine Nitrite Negative Urine Bilirubin Negative Urine Urobilinogen (Auto) Negative Ur Leukocyte Esterase Positive Urine RBC 4 H Urine WBC 14 H Ur Squamous Epith Cells 15 H Urine Bacteria Rare Urine HCG, Qual Negative Quality Measures Quality Measures VTE prophylaxis Assessment & Plan Assessment Current Active Medications: Generic Name Dose Route Start Last Admin Trade Name Freq PRN Reason Stop Dose Admin Acetaminophen 650 mg 05/06/25 05:54 Acetaminophen 325 Mg Tablet PO 06/05/25 05:53 Q6H PRN Fever >101.5 Hydromorphone HCl 1 mg 05/06/25 07:21 Hydromorphone Inj 2 Mg/Ml Vial IVP 05/11/25 07:20 Q4HR PRN Pain 5-10 Sodium Chloride 1,000 mls @ 80 mls/hr 05/06/25 07:15 05/06/25 07:48 Ns IV 05/07/25 08:14 80 mls/hr .[id number] ALISE Administration Ibuprofen 600 mg 05/06/25 05:54 Ibuprofen Tab 600 Mg Tablet PO 06/05/25 05:53 Q6H PRN PAIN SCALE 1-3 (mild Ondansetron HCl 4 mg 05/06/25 05:54 Ondansetron Inj 2 Mg/Ml Inj 2 Ml IVP 06/05/25 05:53 Q4H PRN NAUSEA OR VOMITING Protocol Plan is a 29-year-old female with past medical history of gestational diabetes presented to the ED patient 05/06/2015 chief complaint of abdominal pain, nausea and vomiting for 1 day. Admitted for acute cholecystitis with evaluation management. s/p lap yue with Dr. Evans. #Intractable abdominal pain- resolved #Acute cholecystitis s/p lap yue 05/06 #Cholelithiasis Patient presented with acute onset abdominal pain, nausea, vomiting. Worsened postprandially. On physical examination right upper, epigastric pain with positive Marino sign, indicating possible cholecystitis. Patient is afebrile with a leukocytosis of 12.2. In ED patient received ceftriaxone, ketorolac, and Zofran, 1 L LR. Abdomen /pelvis CT shows:gallbladder is distended with cluster of isodense intraluminal calculi. Gallbladder wall is thickened with subtle pericholecystic fat stranding.Findings consistent with acute cholecystitis. Gallbladder ultrasound shows: Cholelithiasis multiple gallstones,gallbladder wall 0.41 cm,Common bile duct 0.2 cm -General Surgery consulted, s/p lap yue, tolerated well : op note (Distended and very inflamed gallbladder with multiple gallstones and gallbladder wall thickening) -Pain control with Tylenol and ibuprofen #Asymptomatic pyuria Patient denies dysuria, frequency or urgency. However UA was positive for leukocyte esterase 14 WBC, 4 RBC. Urine hCG negative -Continue to monitor for UTI symptoms #Hx gestational diabetes -Not on any medication Hospital management: Lines: peripheral IV Diet: clears, advance as per surgery recs, low fat diet. DVT prophylaxis: SCDs Disposition:post op, pending pain control and surgery clearance. CODE STATUS: Full code Plan discussed with Dr. Fritz, and Dr. Shivam Catalan MD PGY1
[2025-05-06 08:33] LABS: INR 1.0 (0.9-1.3); Partial Thromboplastin Time 26.1 Seconds (22.0-36.0); Prothrombin Time 10.8 Seconds (9.0-12.2)
--- NOTE | 2025-05-06 08:59 | PD.SURCONS ---
HPI Consult details Consult date: 05/06/25 Reason for consultation narrative: Abdominal pain with nausea and vomiting History of present illness: 29-year-old obese female presented to the emergency department with acute onset of abdominal pain. Her pain started in the epigastric and right upper quadrant radiating to her back. Her pain was intermittent initially, however it became persistent and progressively worse. She has had nausea and vomiting, but denies fever, chills, jaundice or discoloration of urine or stool. She denies having similar symptoms in the past. Her WBC was elevated, liver enzymes were unremarkable. CT scan and abdominal ultrasound revealed gallstones with gallbladder wall thickening and edema. Review of Systems Constitutional Constitutional: Denies chills and Denies fever(s) Cardiovascular Cardiovascular: Denies chest pain Respiratory Respiratory: Denies cough Gastrointestinal Gastrointestinal: Reports abdominal pain, Reports nausea and Reports vomiting Genitourinary Genitourinary: Denies difficulty voiding Musculoskeletal Musculoskeletal: Reports back pain Neurologic Neurologic: Reports system reviewed and no additional complaints, except as documented and Reports as per HPI Hematologic/Lymphatic Hematologic/Lymphatic: Denies easy bleeding and Denies easy bruising Past Medical History Surgical History OTHER SURGICAL HX: No surgeries in the past Social History SMOKING STATUS: Never smoker SUBSTANCE USE: does not use ALCOHOL: Never Meds Home Medications and Allergies Home Medications ?Medication ?Instructions ?Recorded ?Confirmed ?Type prenat.vits,carol,[id number]-[id number] 1 tab PO QDAY 11/02/20 06/22/24 History Allergies Allergy/AdvReac Type Severity Reaction Status Date / Time No Known Allergies Allergy Verified 05/05/25 22:25 Exam Vital Signs Temp Pulse Resp BP Pulse Ox O2 Del Method 98.3 F 68 19 102/65 98 Room Air 05/06/25 07:19 05/06/25 07:19 05/06/25 07:19 05/06/25 07:19 05/06/25 07:19 05/06/25 07:19 Constitutional Constitutional: no acute distress Routine HEENT Exam Eye: Present PERRL (anicteric sclera) Routine Abdominal Exam Abdominal: Present soft, normoactive bowel sounds and tenderness (RUQ tenderness to palpation, positive Marino sign); Absent distended Assessment & Plan Problem List (1) Calculus of gallbladder with acute cholecystitis without obstruction: Status: Acute Plan Keep NPO with IVF and IV antibiotics. Will plan for laparoscopic possible open cholecystectomy. Risks include but not limited to infection, bleeding, injury to bowel, liver, stomach, bile duct, retained stone, bile leak, abdominal sepsis and or abdominal abscess, need for further procedure and or operation discussed with the patient. Benefits and alternatives explained to her, all her questions answered, she agreed and consented to proceed with the operation.
--- NOTE | 2025-05-06 10:45 | PC.NURSE ---
PATIENT ALERT AND ORIENTED X4, OR HERE TO DIRECT MARKETING COORDINATOR PATIENT FOR SURGERY.
--- NOTE | 2025-05-06 12:10 | SUR.PHASEI ---
pt arrived to PACU via gurney drowsy but arouses to voice, breathing unlabored, dressing to abdomen clean, dry, and intact, report from Meli KATHLEEN and Benjamin NARAYAN
--- NOTE | 2025-05-06 12:11 | PD.SUROPNT ---
Date of Procedure 05/06/25 Pre Op Diagnosis Cholelithiasis with acute cholecystitis Post Op Diagnosis Cholelithiasis with acute cholecystitis Procedure Laparoscopic cholecystectomy Findings Distended and very inflamed gallbladder with multiple gallstones and gallbladder wall thickening Procedure Description Patient was brought into the operating room in supine position. After administration of general endotracheal anesthesia abdomen was prepped and draped in standard surgical manner. A Veress needle was inserted through the umbilicus and pneumoperitoneum was obtained up to 15 mmHg. The Veress needle was then removed, a 5 mm infraumbilical incision was made and the 5mm trocar was inserted. Laparoscopic camera was placed. Under direct visualization a laparoscopic camera a 10 mm trocar was placed in subxiphoid and two 5 mm trocars placed in right upper quadrant. The gallbladder was identified and was noted to be very distended with gallbladder wall thickening, multiple stones and significant pericholecystic edema. The gallbladder was decompressed with an aspirator. It was retracted cephalad and laterally. Dissection started near the infundibulum of gallbladder where cystic duct and gallbladder junction clearly identified. The cystic duct was circumferentially dissected off the peritoneum and surrounding inflammatory tissue. The critical view of safety was clearly demonstrated. Cystic duct was then divided between 2 endoclips proximally and one distally. The cystic artery was similarly dissected and divided. The gallbladder was then from the liver bed using electrocautery. The gallbladder was then placed inside an Endo Catch and removed from the abdomen utilizing subxiphoid trocar site. The area was copiously and thoroughly washed and irrigated, all the fluid was suctioned and the suction fluid returned clear. Hemostasis achieved using electrocautery. Endoclips noted be in place and intact without any bleeding or any leakage. Hemostasis was adequate and satisfactory. The subxiphoid trocar sites fascial defect was closed with 0 Vicryl using Endo Closure device. Instruments and trocars removed, pneumoperitoneum was evacuated and the incisions closed with 4-0 Monocryl in subcuticular fashion. Instrument needle and sponge counts were all reported to be correct X2. Patient tolerated the procedure well, was extubated, breathing spontaneously and without difficulty and was transferred to postanesthesia care in stable condition. Anesthesia GETA and local Pathology / specimen Other (Gallbladder and contents) Estimated Blood Loss 25 Condition Stable Disposition PACU Surgeon Emanuel Evans MD Surgical Staff Operation Date: 05/06/25 11:15 Case Staff OFFICE ADMINISTRATION: Venkatesh Dsouza
--- NOTE | 2025-05-06 12:15 | SUR.PHASEI ---
1215: Pt. wakes to name then drifts back to sleep, vitals stable, breathing unlabored, no complaint of pain or nausea, x4 dermabond sites to ABD CDI, no active bleed noted, report received from Shaina Dorsey RN.
--- NOTE | 2025-05-06 13:40 | SUR.PHASEI ---
1340: Pt. AAOx4, vitals stable, breathing unlabored, no complaint of pain or nausea, x4 dermabond sites to ABD CDI, no active bleed noted, pt. tolerated bites of ice chips well, gave report to Adrienne KATHLEEN prior to transfer to room 383.
--- NOTE | 2025-05-06 14:02 | PC.NURSE ---
patient back from or, pt alert and oriented x2, lethargic, abusable to her name.
[2025-05-06] MEDS: ACETAMINOPHEN 325 MG TABLET 650 MG PO (16:18)
[2025-05-06] MEDS: IBUPROFEN TAB 600 MG TABLET PO (17:15)
[2025-05-06] MEDS: CEFOXITIN 2 GM in SODIUM CHLORIDE 0.9% (Popper) 50 ML IV ×2 (17:15→23:02)
--- NOTE | 2025-05-06 17:19 | PC.NURSE ---
PATIENT REPORTS PAIN 9 OUT OF SCALE OF 0-10, NURSE OFFER [facility] PT REFUSED AND REQUESTED IBU.
[2025-05-06] MEDS: DOCUSATE SOD 100 MG CAPSULE PO (20:02)
[2025-05-07] VITALS: BP 98/60; PULSE 66; RESP 18; TEMP 36.6; O2SAT 95
[2025-05-07 04:00] VITALS: BP 99/63; PULSE 68; RESP 16; TEMP 36.1; O2SAT 94
[2025-05-07] MEDS: CEFOXITIN 2 GM in SODIUM CHLORIDE 0.9% (Popper) 50 ML IV ×2 (05:05→11:21)
[2025-05-07] MEDS: ACETAMINOPHEN 325 MG TABLET 650 MG PO (05:10)
[2025-05-07 05:20] LABS: Basophils # (Auto) 0.0 Thou/mm3 (0.0-0.2); Basophils % (Auto) 0 % (0-2.5); Eosinophils # (Auto) 0.1 Thou/mm3 (0.0-0.5); Eosinophils % (Auto) 2 % (0-10); Hematocrit 35.2 % (36.0-46.0); Hemoglobin 11.7 g/dL (12.0-16.0); Immature Granulocytes Auto 0.01 Thou/mm3 (0.00-0.00); Lymphocytes # (Auto) 2.4 Thou/mm3 (1.0-4.8); Lymphocytes % (Auto) 35 % (10-50); Mean Corpuscular HGB Conc 33.2 g/dl (31.0-37.0); Mean Corpuscular Hemoglobin 30.6 pg (25.0-35.0); Mean Corpuscular Volume 92 fL (80-100); Monocytes # (Auto) 0.4 Thou/mm3 (0.0-0.8); Monocytes % (Auto) 6 % (0-12); Neutrophils # (Auto) 3.9 Thou/mm3 (1.8-7.7); Neutrophils % (Auto) 57 % (37-80); Nucleated Red Blood Cell # 0.00 Thou/mm3 (0.00-0.00); Nucleated Red Blood Cell % 0 /100 WBC (0); Platelet Count 176 Thou/mm3 (140-440); RDW Standard Deviation 41.2 fL (36.4-46.3); Red Blood Count 3.82 Miln/mm3 (4.00-5.20); White Blood Count 6.8 Thou/mm3 (3.6-11.0)
[2025-05-07 06:06] LABS: Alanine Aminotransferase 40 U/L (10-49); Albumin, Serum 3.6 gm/dL (3.5-5.0); Albumin/Globulin Ratio 1.7 (1.2-2.2); Alkaline Phosphatase 77 U/L (46-116); Anion Gap 9 (7-16); Aspartate Amino Transferase 37 U/L (0-34); BUN/Creatinine Ratio 10 Ratio (12-20); Bilirubin,Total 0.5 mg/dL (0.3-1.2); Blood Urea Nitrogen < 5 mg/dL (9-23); Calcium 8.5 mg/dL (8.3-10.6); Calcium (Corrected) 8.8 mg/dL (8.5-10.1); Carbon Dioxide 23.9 mMol/L (20.0-31.0); Chloride 110 mMol/L (98-107); Creatinine (Component) 0.5 mg/dL (0.6-1.3); Estimated Creatinine Clearance 156.9 mL/min (>60); Globulin 2.1 gm/dL (2.3-3.5); Glucose 83 mg/dL (74-106); Magnesium 1.9 mg/dL (1.6-2.6); Osmolality,Calculated 281 (275-295); Phosphorous 2.3 mg/dL (2.4-5.1); Potassium 3.8 mMol/L (3.4-5.1); Sodium 143 mMol/L (136-145); Total Protein 5.7 gm/dL (5.7-8.2); eGFR > 60 See Note
[2025-05-07 08:00] VITALS: BP 116/56; PULSE 62; RESP 17; TEMP 36.4; O2SAT 97
[2025-05-07] MEDS: IBUPROFEN TAB 600 MG TABLET PO (08:02)
[2025-05-07] MEDS: DOCUSATE SOD 100 MG CAPSULE PO (08:02)
--- NOTE | 2025-05-07 08:56 | PD.SURPROG ---
Documentation for date of: 05/07/25 Subjective Subjective Narrative: Patient is seen and examined. Her pain is improving. She is tolerating diet Exam Vital Signs Temp Pulse Resp BP Pulse Ox O2 Del Method O2 Flow Rate 97.6 F 62 17 116/56 L 97 Room Air 2 05/07/25 08:00 05/07/25 08:00 05/07/25 08:00 05/07/25 08:00 05/07/25 08:00 05/07/25 08:00 05/06/25 13:30 Constitutional Constitutional: no acute distress Routine Abdominal Exam Comments: Abdomen is soft and nondistended. Incisions are clean, dry and intact Assessment & Plan Assessment Additional comments: Postop day #1 status post laparoscopic cholecystectomy Plan May discharge home PROCEDURES: Procedures Laparoscopic cholecystectomy
[2025-05-07] MEDS: NAPH,KPH MBDB 1 PACKET (1.5 GM) PO (09:56)
[2025-05-07 12:00] VITALS: BP 116/58; PULSE 62; RESP 19; TEMP 36.6; O2SAT 99
--- NOTE | 2025-05-07 15:00 | ESDS_ITS ---
<Statement entered by Faith Langley MD - 05/09/25 17:42> I reviewed above note and agree with findings and plans. I have also personally examined the patient with medicine team and went over assessment and plan with medical team including internal sales engineer and resident physician. Planned Discharge Date 05/07/25 DS: Providers Provider Date of admission: 05/06/25 05:54 Primary care physician: Physician No Primary/Family Admitting Provider: Ladonna Cifuentes MD Attending Provider on Admission: Faith Langley MD Consults: 05/06/25 05:59 Consult to General Surgery Stat Comment: Consulting Provider: Emanuel Evans Attending Provider on DC: Faith Langley MD Discharging Provider: Faith Langley MD DS: Diagnosis Problem List Completed Was Problem List Reviewed/Reconciled?: Yes Hospital Course Hospital Course Hospital course: Reason for hospitalization: acute cholecystitis 29-year-old female with past medical history of gestational diabetes presented to the ED patient 05/06/2015 chief complaint abdominal pain for 1 day. Was associated with nausea, vomiting, and malaise. The patient has had 3-4 episodes of vomiting. She had leukocytosis WBC 12.2, amylase 205. UA positive for leukocyte esterase and 14 WBC. Imaging included gallbladder ultrasound shows Cholelithias. Abdomen /pelvis CT shows shows findings consistent with acute cholecystitis. Gen surgery was consulted who did lap yue on 05/06/25. She tolerated procedure well and was able to tolerate diet. Patient is now in stable condition and ready for discharge. Recommendations were given as below. Discharge Recommendations: Use pain medication as needed. Gradually return to physical activity. Follow up with PCP in 1-2 weeks. Hospital Diagnoses: #Acute cholecystitis #Hx gestational diabetes The patient's management plan was discussed with my attending physician Dr. Langley. Lilian Fritz MD, PGY-2 Time Spent with Patient Time attestation: Total time spent providing and/or coordinating discharge services: Time spent: Greater than 30 minutes Exam Vital Signs Temp Pulse Resp BP Pulse Ox O2 Del Method O2 Flow Rate 97.9 F 62 19 116/58 L 99 Room Air 2 05/07/25 12:00 05/07/25 12:00 05/07/25 12:00 05/07/25 12:00 05/07/25 12:00 05/07/25 12:00 05/06/25 13:30 Narrative Exam General: Alert and oriented x3. No acute distress, cooperative HEENT: NCAT, No JVD noted. Mucosa moist. Pupils are equal and reactive to light bilaterally Cardiovascular: Normal S1 and S2. Regular rate and rhythm. Respiratory: Lungs are clear to auscultation bilaterally. No wheezing or crackles heard. Abdomen: Soft, tender at incision site, not bleeding, are dry, not distended, normal bowel sounds. Skin: Warm to touch, dry, no rashes noted Musculoskeletal: No gross injuries. Able to move all 4 extremities. No pitting edema Neuro: Alert and oriented x3. No focal neuro deficits. Psych: Normal affect and mood Discharge Plan Plan Patient Disposition: HOME (Self Care) Patient condition on transfer: Stable Prescriptions/Referrals Prescriptions/Med Rec: New ibuprofen 600 mg tablet 600 mg PO Q8H PRN (Reason: pain (scale score 4-6)) Qty: 15 0RF hydrocodone-acetaminophen 5-325 mg tablet 1 tab PO Q6H MDD 4 PRN (Reason: pain (scale score 7-10)) Qty: 7 0RF docusate sodium [Colace] 100 mg capsule 100 mg PO BID Qty: 20 0RF Continued prenat.vits,carol,[id number] Tablet 1 tab PO QDAY meclizine 50 mg tablet 50 mg PO BID Qty: 14 0RF Referrals: No Primary/Family,Physician [Primary Care Provider] Patient/Caregiver Discharge Instructions Discharge Activity: activity as tolerated Other Discharge Activity Instructions:: Use pain medication as needed. Gradually return to physical activity. Follow up with PCP in 1-2 weeks. Education Materials: Preventing Surgical Site Infections Print Language: Czech Activity Restrictions/Additional Instructions: May shower. Avoid lifting, straining, pulling or pushing for 4 weeks. May take over the counter laxatives if no bowel movement in 2 days. Follow up with Dr. Evans in 2 weeks, call [phone] for an appointment. Continue low-fat diet for 1 week then advance diet as tolerated. Stand Alone Forms: [facility] Award Info., Patient Portal Info Letter Discharge Order Discharge Orders: Discharge (Routine); Ordered 05/07/25 Ordered By: Lilian Fritz Quality Discharge Quality Measures VTE prophylaxis
--- NOTE | 2025-05-08 09:37 | PC.SS ---
Late note 05-07-25: SS met with patient regarding her d/c plan. Pt is alert/oriented. Pt was admitted for Acute Cholecystitis. Pt confirmed demographic and contact information is correct on facesheet. Pt resides with . Pt ambulates independently without assistance or DME. Pt is ok with all ADLs. Patient?s pharmacy of choice is [facility]. Pt named her , Marcos Willard medical decision maker if she is unable. Patient?s choice is to return home upon d/c. Pt followed up with PCP 1 year ago. Pt states she is not diabetic and is not on dialysis. will provide transport. D/C plan: Return home Next of Kin: Marcos Willard, , phone# [phone] PCP: [facility] Address: Correct on facesheet
== END 2025-05-07 13:15 | disposition home or self-care (01) ==
LOC: SERX 05-06 05:07 → SERHOLD 05-06 06:33 → S3SX 05-06 09:15 → SERHOLD 05-07 06:34
PROVIDERS: Nurse Practitioner Family; Surgery; Admitting Provider Student in an Organized Health Care Education/Training Program; Emergency Provider Emergency Medicine; Visit Provider Internal Medicine
PROC: 0FT44ZZ Resection of Gallbladder, Percutaneous Endoscopic Approach (ICD-10-PCS; CPT 47562; principal; 2025-05-06 11:00)
DX: K80.12 Calculus of gallbladder with acute and chronic cholecystitis without obstruction (principal)
CPT/HCPCS: 47562; 36415; 74176; 76705; 80053; 81001; 81025; 82150; 83735; 84100; 85025; 85610; 85730; 96361; 96365; 96375; 99284; A4217; A4649; G0378; J0131; J0694; J0696; J1171; J1885; J2250; J2270; J2405; J2704; J3010; J3490; J7030; J7050; J7120; A9270; J1596